=== PATIENT | male | born 1980 | race Caucasian/White ===

== ENCOUNTER 2018-12-26 10:17 | Emergency (ER) | payer MEDICAID ==
[~2018-12-26] VITALS: Ht 175.3 cm; Wt 84.1 kg
[2018-12-26 10:31] VITALS: Ht 175.3 cm; Wt 84.1 kg
[2018-12-26 11:03] LABS: BASOPHILS 0.3 % (0-2); EOSINOPHILS 2.2 % (0-7); HEMATOCRIT 42.6 % (42.0-54.0); HEMOGLOBIN 14.8 g/dL (13.5-17.5); IMMATURE GRANULOCYTES 0.2 % (0-5); LYMPHOCYTES 24.2 % (15-50); MCH 31.5 pg (26.0-34.0); MCHC 34.7 g/dL (31.0-37.0); MCV 90.6 fL (80.0-100.0); MEAN PLATELET VOLUME 9.9 fL (7.4-10.4); MONOCYTES 6.1 % (2-11); PLATELET COUNT 330 10x3/uL (130-400); WBC 9.3 10x3/uL (4.8-10.8)
[2018-12-26 11:15] LABS: APPEARANCE HAZY (CLEAR); BILIRUBIN NEGATIVE (NEGATIVE); COLOR YELLOW (YELLOW); EPITHELIAL CELLS 0-5 /hpf (0-5); GLUCOSE NEGATIVE (NEGATIVE); KETONE NEGATIVE (NEGATIVE); NITRITE NEGATIVE (NEGATIVE); PROTEIN NEGATIVE (NEGATIVE); SPECIFIC GRAVITY 1.005 (1.005-1.020); UROBILINOGEN NORMAL (NORMAL)
[2018-12-26 11:16] LABS: AMORPHOUS SEDIMENT >1+ /lpf (NONE SEEN); BACTERIA MODERATE /hpf (NONE SEEN); MUCUS <1+ /lpf (NONE SEEN)
[2018-12-26 11:42] LABS: ALBUMIN 3.7 g/dL (3.4-5.0); ANION GAP 13.5 mmol/L (8-16); BILIRUBIN - TOTAL 0.19 mg/dL (0.2-1.3); CALCIUM 9.2 mg/dL (8.5-10.1); CARBON DIOXIDE 28.8 mmol/L (21.0-32.0); CREATININE - SERUM 1.2 mg/dL (0.6-1.3); POTASSIUM - SERUM 4.3 mmol/L (3.5-5.1); PROTEIN - SERUM 7.9 g/dL (6.4-8.2)
[2018-12-26] MEDS ORDERED: KEFLEX500 MG PO (11:44)
[2018-12-26 12:00] VITALS: BP 142/86
== END 2018-12-26 12:00 | disposition home or self-care (01) ==
LOC: D.ER 10:17
PROVIDERS: Emergency Medicine
DX: R78.81 Bacteremia (principal); N39.0 Urinary tract infection, site not specified; R31.9 Hematuria, unspecified

== ENCOUNTER 2019-03-10 19:45 | Emergency (ER) | payer MEDICAID ==
[~2019-03-10 19:45] MED LIST: KEFLEX500 MG PO
[2019-03-10 19:49] VITALS: BMI 26.6
[2019-03-10] MEDS ORDERED: NAPROSYN500 MG PO (23:10)
[2019-03-10] MEDS ORDERED: CLEOCIN HCL300 MG PO (23:10)
[2019-03-10 23:23] VITALS: BP 143/88
== END 2019-03-10 23:20 | disposition home or self-care (01) ==
LOC: D.ER 19:45
DX: S61.451A Open bite of right hand, initial encounter (principal); S91.051A Open bite, right ankle, initial encounter; W54.0XXA Bitten by dog, initial encounter; S60.221A Contusion of right hand, initial encounter